=== PATIENT | female | born 1990 | race Caucasian/White ===

== ENCOUNTER → 2019-10-23 | Outpatient (CLI) | payer OTHER | END | disposition home or self-care (01) | LOC: LAB 14:17 | PROVIDERS: ATTEND Nurse Practitioner Women's Health | DX: N64.52 Nipple discharge (principal) | CPT/HCPCS: 36415; 84146; 84443 ==

== ENCOUNTER 2021-08-17 12:52 | Emergency (ER) | payer SELFPAY ==
[~2021-08-17] VITALS: Ht 162.6 cm; Wt 94.0 kg
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
[2021-08-17] MEDS ORDERED: ORPHENADRINE CITRATE 60 MG/2 ML VIAL. IM ONE (14:15)
[2021-08-17] MEDS ORDERED: KETOROLAC 60 MG/2 ML VIAL. IM ONE (14:15)
[2021-08-17 14:52] VITALS: BP 113/70
== END 2021-08-17 14:55 | disposition home or self-care (01) ==
LOC: ER 12:52
DX: G89.29 Other chronic pain (principal); M25.561 Pain in right knee; R22.42 Localized swelling, mass and lump, left lower limb; Z88.1 Allergy status to other antibiotic agents; Z88.6 Allergy status to analgesic agent; Z88.8 Allergy status to other drugs, medicaments and biological substances
CPT/HCPCS: 73564; 81025; 96372; 99284; J1885; J2360